=== PATIENT | male | born 1995 | race Caucasian/White ===

== ENCOUNTER 2016-10-23 13:42 | Emergency (ER) | payer OTHER ==
--- NOTE | 2016-10-23 14:23 | EDPHY ---
H & P Stated Complaint: Ski injury RLE x 1 wk ago;sent by [facility] for further mellisa Source: Patient Exam Limitations: No limitations - Personal History Current Tetanus Diphtheria and Acellular Pertussis (TDAP): Yes - Social History Smoking Status: Current every day smoker Time Seen by Provider: 10/23/16 14:07 HPI/ROS: CHIEF COMPLAINT: right leg injury HISTORY OF PRESENT ILLNESS: 21-year-old male presents emergency department sent from a sports medicine Dr. Best. Patient fell skiing 1 week ago jumping off of a sancho, had a twist and fall, initially he had knee pain which has resolved. Patient reports since this injury he has had numbness and tingling in his right lower extremity with a pulling sensation in the back of his leg. Patient states his leg has been cold, he reports he wakes up in the morning and his foot is harden. REVIEW OF SYSTEMS: A comprehensive 10 point review of systems is otherwise negative aside from elements mentioned in the history of present illness. (Maryann Zamora) - Physical Exam Exam: GEN: Awake, alert, oriented, no acute distress RESP: nl resp effort MSK: Right knee with no medial or lateral joint line tenderness. No effusion. Right popliteal fossa toe with tenderness to palpation, tenderness to palpation to posterior calf, paresthesias right lower extremity from mid thigh down, no swelling or ecchymosis, compartments soft, 2+ pedal pulses dorsalis pedis and posterior tibialis equal to left side, right foot cold compared to left. SKIN: No rash, no break in skin (Maryann Zamora) Constitutional: Initial Vital Signs Temperature (C) 36.7 C 10/23/16 13:42 Heart Rate 84 10/23/16 13:42 Respiratory Rate 18 10/23/16 13:42 Blood Pressure 135/62 H 10/23/16 13:42 O2 Sat (%) 96 10/23/16 13:42 O2 Delivery Mode Room Air Allergies/Adverse Reactions: No Known Allergies Allergy (Unverified 10/23/16 13:49) Home Medications: Medication Instructions Recorded Hydrocodone/APAP 5/325 [[place] 1 tab PO Q4H PRN #7 tab 10/23/16 5/325] Medical Decision Making - Diagnostics Imaging: CT angio abdomen with bilateral runoff- Impression: 1. No acute vascular findings 2. Additional findings as above. Findings discussed with Juan Zamora N.P. on October 23, 2016 at 1640 hours. Dictated By: Uche Quigley MD (Maryann Zamora) ED Course/Re-evaluation: 1443: I examined the patient myself. On exam he is tender behind his right knee. He does have a cold foot and cold ankle but I do not believe the limb is acutely threatened. He has good cap refill. His PT and DP pulses are diminished compared to the other leg. I believe this was caused by a transient dislocation of his knee from landing funny off of a jump while skiing. (Lyle Mensah) IV established, i-STAT obtained showing a normal creatinine. CT angiogram ordered to evaluate injury to vessel from his traumatic fall skiing. CT angiogram is normal. Dr. Lyle Mensah and Dr. Hadley Monzon, my supervising physicians at both examined this patient. I will discharge this patient home, we placed an Damon wrap on his right leg and he has been given crutches. He is given Ortho and Neurology for follow-up. Patient is given strict return precautions for worsening symptoms, new symptoms or concerns. (Maryann Zamora) Differential Diagnosis: Diagnosis considered but not limited to muscle strain, fracture, damage to nerve , vascular injury. (Maryann Zamora) Other Provider: I did examine this patient after his CT scan. He has strong pulses bilateral for me. He has cold feet bilaterally but states they feel normal to him. His shins and upper legs are normal in examination and temperature. No laxity to his knee. Complains of the lateral paresthesia and numbness. This could be consistent with a nerve compression. He does not think that this knee dislocated but states that he twisted it. We will place him in a brace and have him follow up with Orthopedics. (Hadley Monzon) - Data Points Laboratory Results: 10/23/16 14:42 POC Hgb 18.0 gm/dL H gm/dL (14.5-17.3) POC Hct 53 % H % (42.8-50.6) POC Sodium 143 mEq/L mEq/L (134-144) POC Potassium 3.8 mEq/L mEq/L (3.3-5.0) POC Chloride 103 mEq/L mEq/L (96-108) POC BUN 13 mg/dL mg/dL (7-23) POC Creatinine 1.0 mg/dL mg/dL (0.8-1.5) POC Glucose 87 mg/dL mg/dL (70-100) Point of Care Test Results: 10/23/16 14:42 POC Sodium 143 POC Potassium 3.8 POC Chloride 103 POC BUN 13 POC Creatinine 1.0 POC Glucose 87 Departure - Departure Disposition: Home, Routine, Self-Care Clinical Impression: Right leg injury Qualifiers: Encounter type: initial encounter Qualified Code(s): S89.91XA - Unspecified injury of right lower leg, initial encounter Condition: Good Instructions: Knee Pain (ED) Additional Instructions: Rest, wear damon wrap and use crutches, follow up with orthopedist at 1st available appointment. Call to schedule this today. Call to schedule an appointment with the neurologist Take 600 mg of ibuprofen every 8 hours with food for 3-5 days, take [place] for severe pain. Return to the emergency department for any worsening symptoms, new symptoms or concerns. Referrals: Morgan Copeland MD [Medical Doctor] - As per Instructions (Orthopedist on-call) Adelfo Payne DO [Medical Doctor] - As per Instructions (Neurologist election judge) Prescriptions: Hydrocodone/APAP 5/325 [[place] 5/325] 1 tab PO Q4H PRN #7 tab PRN Reason: Pain, Moderate
[2016-10-23] MEDS ORDERED: IOPAMIDOL (ISOVUE-370) 150 ML BTL IV ONE (15:20)
[2016-10-23 16:01] VITALS: PULSE 72; RESP 16; TEMP 97.5
[2016-10-23 18:12] VITALS: BP 138/82; O2SAT 97
== END 2016-10-23 18:11 | disposition home or self-care (01) ==
DX: S89.91XA Unspecified injury of right lower leg, initial encounter (principal); F17.200 Nicotine dependence, unspecified, uncomplicated; V00.321A Fall from snow-skis, initial encounter; Y93.23 Activity, snow (alpine) (downhill) skiing, snowboarding, sledding, tobogganing and snow tubing
CPT/HCPCS: 82947-QW; Q9967